=== PATIENT | female | born 1935 | race Caucasian/White ===

== ENCOUNTER 2020-11-02 16:26 | Emergency (ER) | payer MEDICARE, MEDICAID ==
[~2020-11-02] VITALS: Wt 56.5 kg
[~2020-11-02 16:26] MED LIST changes: -DECADRON6 M1 PO; -Lovenox40 MG/0.4 SC
[2020-11-02 17:14] LABS: BASO % 0.3 % (0.0-1.0); EOS # 0.1 10*3/uL (0.0-0.4); EOS % 0.9 % (1.0-4.0); HEMATOCRIT 37.4 % (37.0-47.0); LYMPH # 1.1 10*3/uL (1.3-4.4); MEAN CORPUSCULAR HGB 27.4 pg (27.0-31.0); MEAN CORPUSCULAR HGB CONC 32.6 g/dl (33.0-37.0); MONO # 0.4 10*3/uL (0.1-1.0); NEUT # 5.3 10*3/uL (2.3-7.9); NEUT % 76.1 % (47.0-73.0); PLATELET COUNT AUTOMATED 129 10*3/uL (130-400); RED BLOOD COUNT 4.45 10*6/uL (4.10-5.10); RED CELL DISTRI WIDTH 14.2 % (0-14.5)
[2020-11-02 17:33] LABS: ACT PARTIAL THROMBO TIME 27.5 SECONDS (20.0-32.1); ALBUMIN 3.3 gm/dl (3.1-4.5); ALKALINE PHOSPHATASE 84 U/L (45-117); BUN 17 mg/dl (7-24); CHLORIDE 99 mmol/L (98-107); CREATININE 0.85 mg/dL (0.55-1.02); LIPASE 205 U/L (73-393); POTASSIUM 4.8 mmol/L (3.5-5.1); SGOT/AST 20 IU/L (3-35); SGPT/ALT 27 U/L (12-78); SODIUM 132 mmol/L (136-145); TOTAL PROTEIN 7.7 gm/dL (6.4-8.2)
[2020-11-02 17:36] LABS: TROPONIN I < 0.015 ng/ml (<0.045)
[2020-11-02] MEDS ORDERED: Lovenox40 MG/0.4 SC (18:43)
[2020-11-02] MEDS ORDERED: DECADRON6 M1 PO (18:43)
== END 2020-11-02 19:20 ==
LOC: ED 16:26
PROVIDERS: Emergency Medicine
DX: U07.1 COVID-19 (principal); J98.8 Other specified respiratory disorders; Z88.0 Allergy status to penicillin; Z88.2 Allergy status to sulfonamides; Z79.899 Other long term (current) drug therapy; Z98.890 Other specified postprocedural states

== ENCOUNTER → 2020-11-02 | Outpatient (CLI) | payer MEDICARE, MEDICAID ==
[~2020-11-02] MED LIST: ALDACTONE100 MG PO; AMARYL4 MG PO; ASCRIPTIN ENTER81 MG; ASCRIPTIN325 MG PO; CIPRO750 MG PO; DECADRON6 M1 PO; DUONEB 3 MG/3 ML3 M1 INH; FERROUS SULFAT325 MG PO; FLAGYL500 MG PO; GLUCOPHAGE1000 MG PO; INSULIN HUMA100 U/ML SC; JANUVIA50 MG PO; K-DUR 1010 MEQ PO; K-POTASSIUM CH20 ME1 PO; LOPRESSOR25 MG PO; LOPRESSOR50 MG PO; LOTREL 10 MG-201 CAP PO; Lovenox40 MG/0.4 SC; MAGNESIUM OXID400 MG PO; MEGACE 40400 MG/10 PO; MICRO-K LS20 MEQ PO; MULTIPLE VITAMI1 CAP PO; NASONEX0.05 MG/AC NS; NEUTRA PHOS K PO; NEXIUM40 MG PO; NIFEREX150 MG PO; NITRO TRANS0.4 MG/HR TD; PERCOCET 325 MG1 TA5 PO; PLAVIX75 MG PO; PRAVACHOL40 MG PO; PRINIVIL20 MG PO; PROTONIX40 MG PO; SIMVASTATIN40 MG PO; SYNTHROID0.125 MG PO; SYNTHROID0.15 MG PO; VITAMIN D1000 IU PO; ZOLOFT100 MG PO; ZOLOFT50 MG PO; [UNRECOGNIZED DRUG - OTHER] PO
== END | disposition home or self-care (01) ==
LOC: COVID19 16:45
PROVIDERS: ATTEND Internal Medicine
DX: U07.1 COVID-19 (principal)